=== PATIENT | male | born 1995 | race African-American/Black ===

== ENCOUNTER 2021-02-02 21:49 | Emergency (ER) | payer OTHER ==
[2021-02-02 21:54] VITALS: BP 136/83; PULSE 102; TEMP 98.6; BMI 45.0
[2021-02-02] MEDS ORDERED: IBUPROFEN 600 MG TABLET (FP) PO ONE ×2 (22:08→22:13)
[2021-02-02] MEDS ORDERED: CYCLOBENZAPRINE HCL 10 MG TABLET (FP) PO ONE (22:08)
[2021-02-02] MEDS ORDERED: CYCLOBENZAPRINE HCL 10 MG TABLET (FP) ONE (22:13)
== END 2021-02-02 23:21 | disposition home or self-care (01) ==
LOC: JERFT 21:49
DX: M25.511 Pain in right shoulder (principal); M54.5 Low back pain; M79.642 Pain in left hand; M79.651 Pain in right thigh; M79.652 Pain in left thigh
CPT/HCPCS: 73130-TC-LT-FY; 99283-25